=== PATIENT | female | born 1950 | race Caucasian/White ===

== ENCOUNTER 2019-09-10 06:14 | Day surgery (SDC) | payer MEDICARE, SELFPAY ==
[2019-09-09 12:31] VITALS: BMI 31.6
[2019-09-10 06:41] VITALS: BP 169/85; PULSE 69; RESP 18; TEMP 36; O2SAT 99
[2019-09-10] MEDS: sodium chloride 0.9% 1,000 ML 30 ML (06:50)
--- NOTE | 2019-09-10 06:55 | PM.HPUD ---
H&P update H&P Update: DATE OF SURGERY/PROCEDURE: 09/10/19 DATE H&P PERFORMED: 09/10/19 PLANNED PROCEDURE: Operation Date: 09/10/19 07:30 Proposed Procedures p Colonoscopy(Not Applicable) - Isacc Lewis MD Full H&P HPI: PRIMARY INDICATION/DIAGNOSIS FOR SURGICAL PROCEDURE: FIT positive PLANNED PROCEDURE: Screening colonoscopy HPI: This a 69-year-old female who lives in a group home and had a colonoscopy in [place] about 10 to 12 years ago. Patient had a fit test which was positive. She denies any GI symptoms Perinent History: Medical/Surgical History: DJD Hypertension Hyperlipidemia Past surgical history: Back surgery Cholecystectomy Social History: Social History Smoking and tobacco status: never smoked Alcohol intake: never Substance/Drug Use: never Pertinent Exam Findings: PHYSICAL EXAM: alert and oriented x 3 OTHER PERTINENT EXAM FINDINGS: Abdomen is soft A&P Assessment and plan (1) Encounter for screening colonoscopy: Status: Acute Code(s): Z12.11 - Encounter for screening for malignant neoplasm of colon
--- NOTE | 2019-09-10 06:57 | ANES.PREANES ---
Pre-Anesthetic Assessment Pre-Anesthetic Assessment: Height/Weight: Height 1.63 m Weight 83.461 kg Temp Pulse Resp BP Pulse Ox 96.8 F L 69 18 169/85 99 09/10/19 06:41 09/10/19 06:41 09/10/19 06:41 09/10/19 06:41 09/10/19 06:41 Proposed Procedure: Operation Date: 09/10/19 07:30 Proposed Procedures p Colonoscopy(Not Applicable) - Isacc Lewis MD Was Beta Estefany taken within 24 hours: N/A Last intake: Intake Last Liquid Date 09/09/19 Last Liquid Time 20:00 Last Solid Date 09/08/19 Last Solid Time 20:00 Social: Social History: No tobacco Exam: Pre-Anes Outpt Exam: alert and oriented x 3 Airway: MP: 2 History/ROS: No significant history except as noted Pulmonary: Pulmonary: None reported CV/HEM: CV/HEM: HTN and Murmur : : None reported Hepatic: Hepatic: None reported GI: GI: None reported Metabolic: Metabolic: Morbid obesity and Thyroid (hypothyroid) Musc/skel: Musc/skel: OA/DJD Neuropsych: Neuropsych: TIA Anesthetic Plan: ASA status: III Anesthesia: Anesthesia Evaluation and MAC Risk of > 500 ml blood loss (7ml/kg in children): No PFSH Anesthesia PFSH: Social History Smoking and tobacco status: never smoked Alcohol intake: never Substance/Drug Use: never Data Anesthesia Cardiac Studies: No Data to Display
[2019-09-10 07:23] VITALS: BP 93/53; PULSE 69; RESP 16; TEMP 36.2; O2SAT 98
[2019-09-10 07:35] VITALS: BP 93/50; PULSE 73; RESP 18; O2SAT 100
== END 2019-09-10 07:53 | disposition home or self-care (01) ==
PROVIDERS: Family Provider Internal Medicine; Visit Provider Surgery
PROC: 0DJD8ZZ Inspection of Lower Intestinal Tract, Via Natural or Artificial Opening Endoscopic (ICD-10-PCS; CPT 45378; principal; 2019-09-10 07:30)
DX: Z12.11 Encounter for screening for malignant neoplasm of colon (principal); K57.30 Diverticulosis of large intestine without perforation or abscess without bleeding; I10 Essential (primary) hypertension; E66.01 Morbid (severe) obesity due to excess calories; Z68.31 Body mass index [BMI] 31.0-31.9, adult; M19.90 Unspecified osteoarthritis, unspecified site; E03.9 Hypothyroidism, unspecified; E78.5 Hyperlipidemia, unspecified
CPT/HCPCS: 12345; 45378; 96365; J2704; J7030

== ENCOUNTER 2020-11-27 10:35 | Outpatient (CLI) | payer MEDICARE, SELFPAY ==
--- NOTE | 2020-11-27 10:41 | MM_ITS ---
WS: [id number] Bilateral screening digital mammogram, 11/27/2020 Clinical Data: SCREENING Comparison: 05/15/2019, 01/19/2018, 08/31/2016, 10/23/2014, 09/05/2013, 06/12/2012. Findings: The breast parenchymal pattern shows fat replacement. No spiculated masses or clustered calcification s are seen. There are no secondary signs of carcinoma. MM/[id number] Impression: 1. Negative bilateral mammogram unchanged. 2. Recommend annual screening mammograms. BIRADS: 1-Negative FOLLOW UP: 1 Year Follow-up The CAD tool drawing checker was used.
== END 2020-11-27 10:36 | disposition home or self-care (01) ==
LOC: RADSHAW 10:39
PROVIDERS: Family Provider Internal Medicine; PCP Internal Medicine; Visit Provider Internal Medicine
DX: Z12.31 Encounter for screening mammogram for malignant neoplasm of breast (principal)
CPT/HCPCS: 77067

== ENCOUNTER 2021-10-14 13:38 | Outpatient (CLI) | payer MEDICARE, SELFPAY ==
--- NOTE | 2021-10-14 13:49 | XR_ITS ---
WS: [email or web address] SCREENING DEXA SCAN [email or web address] CLINICAL INFORMATION: ASYMPTOMATIC POSTMENOPAUSAL STATUS COMPARISON: None. FINDINGS: The L1-L4 bone mineral density measures 1.274 g/cm2. This corresponds to a T score score of 0.8 and Z score of 1.6. Left femoral neck bone mineral density measures 0.843 g/cm2. This corresponds to a T score of -1.3 an d Z score of -0.4. Right femoral neck bone mineral density measures 0.836 g/cm2. This corresponds to a T score -1.4of an d Z score of -0.4. Mean femoral neck bone mineral density measures 0.840 g/cm2. This corresponds to a T score of -1.3 an d Z score of -0.4. XR/XR DEXA axial skeleton* [id number] IMPRESSION: Osteopenia femoral necks. Normal bone mineralization lumbar spine although like ly spuriously elevated due to endplate sclerosis Patient's FRAX calculated 10 year probability for major osteoporotic fracture i s 23.9% and osteoporotic hip fracture is 10.2%.
== END 2021-10-14 13:39 | disposition home or self-care (01) ==
LOC: RAD 13:39
PROVIDERS: PCP Internal Medicine; Visit Provider Internal Medicine
DX: Z78.0 Asymptomatic menopausal state (principal); M85.88 Other specified disorders of bone density and structure, other site
CPT/HCPCS: 77080

== ENCOUNTER 2021-11-08 13:01 | Outpatient (CLI) | payer MEDICARE, SELFPAY ==
--- NOTE | 2021-11-08 13:08 | MR_ITS ---
WS: [id number] MRI LUMBAR SPINE NONCONTRAST TECHNIQUE: Sagittal T1, T2 and STIR imaging. Axial T1 and T2 imaging. CLINICAL INFORMATION: DEGENERATIVE DISC DZ LSPINE W/RADICULOPATHY COMPARISON: None. FINDINGS: Mild lumbar curve. No acute compression. No high-grade central canal stenosis. Disc space narrowing w orse at L2-L3, L3-L4, and L5-S1. L1-L2: Normal. L2-L3: Mild disc bulging with osteophytic ridging. Narrowing of the subarticular recess bilaterally. Mild facet arthropathy. Mild LEFT foraminal narrowing. L3-L4: Mild disc bulging and osteophytic ridging. Mild central canal stenosis. Impingement on the RIG HT subarticular recess and traversing RIGHT L4 nerve root. Mild RIGHT foraminal narrowing. Moderate f acet arthropathy. L4-L5: Mild disc bulging with osteophytic ridging. Moderate facet arthropathy with ligamentum flavum flavum hypertrophy. Moderate central canal stenosis. Impingement traversing L5 nerve roots bilaterall y RIGHT greater than LEFT. Mild RIGHT foraminal narrowing. Moderate facet arthropathy. L5-S1: Mild disc bulging with osteophytic ridging. Mild LEFT and no significant RIGHT foraminal narro wing. Mild facet arthropathy. Visualized pelvic bony structures: Normal. Paravertebral soft tissues: Normal. MR/MR lumbar spine wo con* [id number] IMPRESSION: 1. Mild lumbar curve. No acute compression. No high-grade central canal stenos is. 2. Mild central canal stenosis L3-L4 with impingement RIGHT subarticular reces s and traversing RIGHT L4 nerve root. Mild RIGHT L3-L4 foraminal narrowing. 3. Moderate central canal stenosis L4-L5 with impingement traversing L5 nerve roots bilaterally. Mild RIGHT L4-L5 foraminal narrowing. 4. Osteophytic ridging L5-S1 with mild LEFT L5-S1 foraminal narrowing. 5. Mild to moderate facet arthropathy L3-L5.
== END 2021-11-08 13:02 | disposition home or self-care (01) ==
LOC: RAD 13:02
PROVIDERS: PCP Internal Medicine; Visit Provider Internal Medicine
DX: M51.17 Intervertebral disc disorders with radiculopathy, lumbosacral region (principal); M48.061 Spinal stenosis, lumbar region without neurogenic claudication; M25.78 Osteophyte, vertebrae; M47.816 Spondylosis without myelopathy or radiculopathy, lumbar region
CPT/HCPCS: 72148

== ENCOUNTER 2021-12-24 13:48 | Outpatient (CLI) | payer MEDICARE, SELFPAY ==
--- NOTE | 2021-12-24 13:53 | MM_ITS ---
WS: [id number] BILATERAL 3D TOMOSYNTHESIS DIGITAL SCREENING MAMMOGRAPHY WITH CAD CLINICAL INFORMATION: SCREENING HISTORY: Screening mammogram. No current complaints. COMPARISON: November 27, 2020 TECHNIQUE: Bilateral CC and MLO views. FINDINGS: Scattered fibroglandular densities bilaterally. A few incidental punctate and lucent centered calcifi cations. No suspicious focal mass, asymmetry, calcifications, or architectural distortion. No evidenc e of malignancy. MM/[place] [id number] IMPRESSION: BI-RADS: 2-Benign FOLLOW UP: 1 Year Follow-up Recommend return to annual screening mammography.
== END 2021-12-24 13:49 | disposition home or self-care (01) ==
PROVIDERS: PCP Internal Medicine; Visit Provider Internal Medicine
DX: Z12.31 Encounter for screening mammogram for malignant neoplasm of breast (principal)
CPT/HCPCS: 77063; 77067

== ENCOUNTER 2022-01-04 12:12 | Outpatient (CLI) | payer MEDICARE, SELFPAY ==
--- NOTE | 2022-01-04 12:29 | USCV_ITS ---
Elif Segura Age: 71 Gender: F : 1950 Exam Date: 01/04/2022 12:51 Ordering Phys: Sandi Mota MD Technologist: GRANT Exam Location[place] [facility] [place]ication: Murmur BP: 126 / 73 HR: 72 Rhythm: Sinus Technical Quality: Adequate MEASUREMENTS (Male / Female) Normal Values 2D ECHO LV Diastolic Diameter PLAX 3.3 cm 4.2 - 5.9 / 3.9 - 5.3 cm LV Systolic Diameter PLAX 2.2 cm IVS Diastolic Thickness 1.0 cm 0.6 - 1.0 / 0.6 - 0.9 cm IVS Systolic Thickness 1.4 cm LVPW Diastolic Thickness 1.0 cm 0.6 - 1.0 / 0.6 - 0.9 cm LVPW Systolic Thickness 1.3 cm RV Chamber Size 2.8 cm LVOT Diameter 2.0 cm LV Ejection Fraction 2D Teich 65.9 % LV Ejection Fraction MOD 2C 64.4 % LV Ejection Fraction 2C AL 63.4 % LA Diameter 2.3 cm LA Width 3.2 cm LA Height 4.6 cm RA Width 2.9 cm RA Height 5.0 cm Aorta at Sinotubular Diameter 2.2 cm IVC Diameter 1.3 cm M-MODE Aortic Annulus Diameter 3.0 cm LA Ao Ratio MM 0.8 MV E Point Septal Separation 0.7 cm DOPPLER AV Peak Velocity 136.0 cm/s LVOT Peak Velocity 86.0 cm/s AV Area Cont Eq vti 2.5 cm squared AV Area Cont Eq pk 2.0 cm squared MV Area PHT 4.4 cm squared Mitral E to A Ratio 1.1 MV E' Velocity 47.5 cm/s Mitral E to MV E' Ratio 10.5 Mitral E to LV E' Lateral Ratio 9.9 Mitral E to LV E' Septal Ratio 11.3 TR Peak Velocity 231.1 cm/s TR Peak Gradient 21.4 mmHg TR Mean Velocity 190.9 cm/s TR Mean Gradient 15.2 mmHg TR Velocity Time Integral 65.2 cm TV Peak E Velocity 48.0 cm/s Right Atrial Pressure 3.0 mmHg Pulmonary Artery Systolic Pressu 24.4 mmHg PV Peak Velocity 74.0 cm/s RV Acceleration Time 0.1 s RV Ejection Time 0.3 s RV AcT/ET 0.3 FINDINGS Left Ventricle Normal left ventricular size, systolic function and wall thickness, with no regional wall motion abnormalities. Left ventricular ejection fraction is estimated at 65 %. Grade II diastolic dysfunction, moderately elevated filling pressures. Right Ventricle Normal right ventricular size and systolic function. Right ventricular systolic pressure 24.4 mmHg. Right Atrium Normal right atrial size. Left Atrium Mildly increased left atrial size. Mitral Valve Moderate mitral annular calcification. Mildly thickened mitral valve. No mitral valve stenosis. Trace mitral valve regurgitation. Aortic Valve Mildly thickened and calcified trileaflet sclerotic aortic valve. No aortic valve stenosis. No aortic valve regurgitation. Tricuspid Valve Structurally normal tricuspid valve. No tricuspid valve stenosis. Trace tricuspid valve regurgitation. Pulmonic Valve Pulmonic valve not well visualized. Pericardium No pericardial effusion. Aorta Normal size aortic root and proximal ascending aorta. IVC Normal IVC dimension with >50% respiratory change of the inferior vena cava. CONCLUSIONS 1. Normal left ventricular size, systolic function and wall thickness, with no regional wall motion abnormalities. Left ventricular ejection fraction is estimated at 65 %. Grade II diastolic dysfunction, moderately elevated filling pressures. 2. Mildly increased left atrial size. 3. Pulmonary artery pressure estimated at 24 mm Hg. 4. Mildly thickened and calcified trileaflet sclerotic aortic valve. 5. When compared to previous study dated 03/20/2019, there may not have been any significant change. Aurora Burrows MD (Electronically Signed) Final Date: 11 Jan 2022 12:33 S
== END 2022-01-04 12:13 | disposition home or self-care (01) ==
PROVIDERS: PCP Internal Medicine; Visit Provider Internal Medicine
DX: R01.1 Cardiac murmur, unspecified (principal)
CPT/HCPCS: 93306

== ENCOUNTER 2023-02-15 09:18 | Outpatient (CLI) | payer MEDICARE, SELFPAY ==
--- NOTE | 2023-02-15 09:29 | MM_ITS ---
WS: [id number] BILATERAL SCREENING DIGITAL TOMOSYNTHESIS MAMMOGRAM WITH CAD HISTORY: SCREENING COMPARISON: 12/24/2021 on 11/27/2020 Bilateral CC and MLO views with tomosynthesis and synthetic mammography submitted. Computer aided det ection analyzed. Breast composition: There are scattered areas of fibroglandular density. No suspicious masses, microc alcifications or architectural distortion. Benign calcifications in each breast. MM/[id number] IMPRESSION: BI-RADS: 2-Benign FOLLOW UP: 1 Year Follow-up
== END 2023-02-15 09:19 | disposition home or self-care (01) ==
PROVIDERS: PCP Internal Medicine; Visit Provider Internal Medicine
DX: Z12.31 Encounter for screening mammogram for malignant neoplasm of breast (principal)
CPT/HCPCS: 77063; 77067

== ENCOUNTER 2023-10-19 11:31 | Outpatient (CLI) | payer MEDICARE, SELFPAY ==
--- NOTE | 2023-10-19 11:42 | USCV_ITS ---
Elif Segura Age: 73 Gender: F : 1950 Exam Date: 10/19/2023 12:14 Ordering Phys: Sandi Mota MD Technologist: MELODY Exam Location: [facility] [place] Indication: MURMUR BP: 123 / 80 HR: 68 Rhythm: Sinus Technical Quality: Adequate MEASUREMENTS (Male / Female) Normal Values 2D ECHO LV Diastolic Diameter PLAX 5.0 cm 4.2 - 5.9 / 3.9 - 5.3 cm IVS Diastolic Thickness 0.9 cm 0.6 - 1.0 / 0.6 - 0.9 cm IVS Systolic Thickness 1.7 cm LVPW Diastolic Thickness 1.7 cm 0.6 - 1.0 / 0.6 - 0.9 cm LVPW Systolic Thickness 2.7 cm LVOT Diameter 2.0 cm LV Ejection Fraction 2D Teich 73.4 % LV Ejection Fraction MOD 2C 65.7 % LV Ejection Fraction 2C AL 68.9 % LA Diameter 3.1 cm RA Systolic Volume 4C AL 25.1 ml RA Systolic Volume 4C MOD 24.1 ml Aorta at Sinotubular Diameter 2.6 cm M-MODE LA Ao Ratio MM 1.3 AV Cusp Separation MM 1.2 cm DOPPLER AV Peak Velocity 182.5 cm/s LVOT Peak Velocity 107.0 cm/s AV Area Cont Eq vti 1.7 cm squared AV Area Cont Eq pk 1.8 cm squared MV Peak Velocity 126.0 cm/s MV Area PHT 2.7 cm squared Mitral E to A Ratio 0.7 TR Peak Velocity 213.0 cm/s TR Peak Gradient 18.1 mmHg TR Mean Velocity 197.0 cm/s TR Mean Gradient 16.0 mmHg TR Velocity Time Integral 81.4 cm Right Atrial Pressure 3.0 mmHg Pulmonary Artery Systolic Pressu 21.1 mmHg PV Peak Velocity 99.0 cm/s RV Ejection Time 0.3 s FINDINGS Left Ventricle Normal left ventricular size and systolic function, EF 65.7%.mild left ventricular hypertrophy. No regional wall motion abnormalities. Grade I/IV diastolic dysfunction (abnormal relaxation filling pattern), normal to mildly elevated filling pressures. Right Ventricle The right ventricle is normal in size and function. Right Atrium The right atrium is normal in size. Left Atrium Mildly increased left atrial size. Mitral Valve Mild mitral annular calcification. Aortic Valve Thickened aortic valve. Tricuspid Valve Trace tricuspid valve regurgitation. Estimated pulmonary artery peak systolic pressure of 21 mmHg Pulmonic Valve Trace pulmonary valve regurgitation. Pericardium Normal pericardium without effusion. Aorta Normal ascending aorta dimension. IVC The inferior vena cava appears normal. CONCLUSIONS Normal left ventricular size and systolic function, EF 65.7%.mild left ventricular hypertrophy. No regional wall motion abnormalities. Grade I/IV diastolic dysfunction (abnormal relaxation filling pattern), normal to mildly elevated filling pressures. Mild mitral annular calcification. Thickened aortic valve. Mildly increased left atrial size. Trace tricuspid valve regurgitation. Estimated pulmonary artery peak systolic pressure of 21 mmHg. Trace pulmonary valve regurgitation. There is no pericardial effusion. There are no intracardiac masses. Compared to the study from 12/15/2021, there may not be significant change. Dr Jazzy Aponte MD FAC (Electronically Signed) Final Date: 19 October 2023 20:17 S
== END 2023-10-19 11:32 | disposition home or self-care (01) ==
LOC: RAD 11:32
PROVIDERS: PCP Internal Medicine; Visit Provider Internal Medicine
DX: I08.0 Rheumatic disorders of both mitral and aortic valves (principal)
CPT/HCPCS: 93306

== ENCOUNTER 2023-11-16 14:44 | Outpatient (CLI) | payer MEDICARE, SELFPAY ==
--- NOTE | 2023-11-16 14:47 | XR_ITS ---
WS: [id number] SCREENING DEXA SCAN [employer] CLINICAL INFORMATION: Asymptomatic postmenopausal COMPARISON: 10/14/2021 FINDINGS: The L1-L4 bone mineral density measures 1.322 g/cm2. This corresponds to a T score score of 1.2 and Z score of 2.1. Left femoral neck bone mineral density measures 0.854 g/cm2. This corresponds to a T score of -1.2 an d Z score of -0.1. Right femoral neck bone mineral density measures 0.851 g/cm2. This corresponds to a T score -1.2of an d Z score of -0.1. Mean femoral neck bone mineral density measures 0.853 g/cm2. This corresponds to a T score of -1.2 an d Z score of -0.1. IMPRESSION: Normal bone mineralization lumbar spine. Osteopenia femoral necks. Patient's FRAX calculated 10 year probability for major osteoporotic fracture is 13.5% and osteoporot ic hip fracture is 3.5%. Bone mineral density in the lumbar spine increased 3.8% Bone mineral density femoral necks increased 1.5%
== END 2023-11-16 14:45 | disposition home or self-care (01) ==
LOC: RAD 14:45
PROVIDERS: PCP Internal Medicine; Visit Provider Internal Medicine
DX: Z78.0 Asymptomatic menopausal state (principal); M85.88 Other specified disorders of bone density and structure, other site
CPT/HCPCS: 77080

== ENCOUNTER 2024-04-24 10:39 | Outpatient (CLI) | payer MEDICARE, SELFPAY ==
--- NOTE | 2024-04-24 10:40 | MM_ITS ---
WS: [id number] BILATERAL 3D TOMOSYNTHESIS DIGITAL SCREENING MAMMOGRAPHY WITH CAD CLINICAL INFORMATION: SCREENING HISTORY: Screening mammogram. No current complaints. COMPARISON: 2022 TECHNIQUE: Bilateral CC and MLO views. FINDINGS: Scattered fibroglandular densities bilaterally. A few incidental punctate and lucent centered calcif ications. New partially calcified lesion at the 12 o'clock position mid to anterior RIGHT breast. Rec ommend further evaluation with RIGHT breast diagnostic mammography and ultrasound. LEFT breast is unremarkable. MM/[id number] IMPRESSION: DENSITY: There are scattered areas of fibroglandular density. BI-RADS: 0 - Incomplete: Need additional imaging evaluation. FOLLOW UP: Need Additional Imaging Recommend further evaluation with RIGHT breast diagnostic mammography and ultra sound.
== END 2024-04-24 10:40 | disposition home or self-care (01) ==
LOC: RAD 10:40
PROVIDERS: PCP Internal Medicine; Visit Provider Internal Medicine
DX: Z12.31 Encounter for screening mammogram for malignant neoplasm of breast (principal)
CPT/HCPCS: 77063; 77067

== ENCOUNTER 2024-05-30 10:12 | Outpatient (CLI) | payer MEDICARE, SELFPAY ==
--- NOTE | 2024-05-30 10:16 | MM_ITS ---
WS: [id number] RIGHT 3D TOMOSYNTHESIS DIGITAL MAMMOGRAPHY WITH CAD CLINICAL INFORMATION: MAMMOGRAM, ABNORMAL, RIGHT HISTORY: Additional views COMPARISON: 02/15/2023 TECHNIQUE: 3 views of the right breast were obtained. FINDINGS: Scattered fibroglandular densities of the right breast. Partially calcified ovoid lesion anterior RIG HT breast near the 12 o'clock position. This may present a calcified oil cyst but new from 2022. Ultr asound is pending. ULTRASOUND BREAST RIGHT TECHNIQUE: Ultrasound right breast focused area of concern. CLINICAL INFORMATION: MAMMOGRAM, ABNORMAL, RIGHT FINDINGS: Ultrasound composition RIGHT breast anteriorly. Ultrasound RIGHT breast 5 cm from the nipple 12 o'gloria ck position demonstrates a partially calcified cyst measuring 5 x 4 x 4 mm. Findings have a benign ap pearance. Recommend return to annual screen mammography. MM/MM diag RT tomosynthesis [id number] IMPRESSION: DENSITY: There are scattered areas of fibroglandular density. BI-RADS: 2 - Benign. FOLLOW UP: 1 Year Follow-up Recommend return to annual screening mammography.
== END 2024-05-30 10:13 | disposition home or self-care (01) ==
LOC: RAD 10:13
PROVIDERS: PCP Internal Medicine; Visit Provider Internal Medicine
DX: R92.8 Other abnormal and inconclusive findings on diagnostic imaging of breast (principal); R92.323 Mammographic fibroglandular density, bilateral breasts
CPT/HCPCS: 76642; 77061; G0279

== ENCOUNTER 2025-04-10 09:24 | Outpatient (CLI) | payer MEDICARE, SELFPAY ==
--- NOTE | 2025-04-10 09:30 | USCV_ITS ---
Elif Segura Age: 75 Gender: F : 1950 Exam Date: 04/10/2025 09:57 Ordering Phys: Sandi Mota MD Technologist: RACHEL Exam Location: [facility] – [place] Indication: Valerieur BP: 130 / 75 HR: 70 Rhythm: Sinus Technical Quality: Adequate MEASUREMENTS (Male / Female) Normal Values 2D ECHO LV Diastolic Diameter PLAX 3.9 cm 4.2 - 5.9 / 3.9 - 5.3 cm IVS Diastolic Thickness 1.6 cm 0.6 - 1.0 / 0.6 - 0.9 cm IVS Systolic Thickness 1.8 cm LVPW Diastolic Thickness 1.5 cm 0.6 - 1.0 / 0.6 - 0.9 cm LVPW Systolic Thickness 1.6 cm LVOT Diameter 2.1 cm LV Ejection Fraction 2D Teich 73.5 % LV Ejection Fraction MOD 4C 65.4 % LV Ejection Fraction MOD 2C 62.9 % LV Ejection Fraction 2C AL 64.3 % LA Diameter 3.7 cm LA Sys Volume AL 48.5 cm cubed LA Sys Volume Index AL 26.2 cm cubed/m squared Aorta at Sinotubular Diameter 3.7 cm M-MODE LA Ao Ratio MM 1.3 AV Cusp Separation MM 1.7 cm DOPPLER AV Peak Velocity 195.8 cm/s LVOT Peak Velocity 83.0 cm/s AV Area Cont Eq vti 1.6 cm squared AV Area Cont Eq pk 1.4 cm squared MV Area PHT 2.5 cm squared Mitral E to A Ratio 0.9 TV Peak Velocity 215.5 cm/s TR Peak Velocity 245.0 cm/s TR Peak Gradient 24.0 mmHg TV Peak E Velocity 93.0 cm/s PV Peak Velocity 104.0 cm/s FINDINGS Left Ventricle Normal left ventricular size and systolic function with no regional wall motion abnormalities. EF is 60-65%. Grade 1 diastolic dysfunction Right Ventricle Normal in size and function Right Atrium Normal right atrial size. Left Atrium Normal left atrial size. Mitral Valve Moderate mitral annular calcification. Mild mitral valve regurgitation. Aortic Valve Thickened aortic valve. Mild aortic valve stenosis, mean gradient 7.26 mmHg, COLLEEN 1.5cm squared. Tricuspid Valve Insufficient TR jet to calculate RVSP Pulmonic Valve Mild pulmonic regurgitation Pericardium Normal Aorta Mildly dilated IVC Not well visualized CONCLUSIONS LV systolic function is normal with EF of 60-65% Mild mitral valve regurgitation. Mild aortic valve stenosis Mild pulmonic regurgitation Aorta is mildly dilated with ascending aortic diameter of 3.67cm Sonu Luciano MD (Electronically Signed) Final Date: 12 April 2025 00:31 S
== END 2025-04-10 09:25 | disposition home or self-care (01) ==
LOC: RAD 09:25
PROVIDERS: PCP Internal Medicine; Visit Provider Internal Medicine
DX: R01.1 Cardiac murmur, unspecified (principal); I35.0 Nonrheumatic aortic (valve) stenosis; I37.1 Nonrheumatic pulmonary valve insufficiency; I34.0 Nonrheumatic mitral (valve) insufficiency
CPT/HCPCS: 93306

== ENCOUNTER 2025-06-02 10:24 | Outpatient (CLI) | payer MEDICARE, SELFPAY ==
--- NOTE | 2025-06-02 | MM_ITS ---
WS: [id number] BILATERAL SCREENING DIGITAL TOMOSYNTHESIS MAMMOGRAM WITH CAD HISTORY: ANNUAL SCREENING COMPARISON: 05/30/2024, 04/24/2024, 02/15/2023 and 12/24/2021 Bilateral CC and MLO views with tomosynthesis and synthetic mammography submitted. Computer aided detection analyzed. Breast composition: There are scattered areas of fibroglandular density. No suspicious masses, microcalcifications or architectural distortion. Benign calcifications in each breast. MM/MM scr BI tomosynthesis [id number] IMPRESSION: BI-RADS: 2 - Benign. FOLLOW UP: 1 Year Follow-up
== END 2025-06-02 10:25 | disposition home or self-care (01) ==
LOC: RAD 10:25
PROVIDERS: PCP Internal Medicine; Visit Provider Internal Medicine
DX: Z12.31 Encounter for screening mammogram for malignant neoplasm of breast (principal); R92.323 Mammographic fibroglandular density, bilateral breasts; R92.1 Mammographic calcification found on diagnostic imaging of breast
CPT/HCPCS: 77063; 77067

== ENCOUNTER 2025-06-25 11:28 | Outpatient (CLI) | payer MEDICARE, SELFPAY ==
--- NOTE | 2025-06-25 11:36 | XR_ITS ---
WS: [id number] Exam: XR shoulder RT min 2V* [id number] Date/Time of Exam: 06/25/2025 11:45 AM Reason For Exam: PAIN IN R SHOULDER DLP: No fracture. Mild DJD at the glenohumeral joint and AC joint. Normal soft tissues. XR/XR shoulder RT min 2V* [id number] IMPRESSION: 1. Mild DJD.
== END 2025-06-25 11:29 | disposition home or self-care (01) ==
PROVIDERS: PCP Internal Medicine; Visit Provider Internal Medicine
DX: M25.511 Pain in right shoulder (principal); M19.011 Primary osteoarthritis, right shoulder
CPT/HCPCS: 73030

== ENCOUNTER → 2025-07-08 09:17 | Outpatient (BNVA) | payer MEDICARE, SELFPAY | PROVIDERS: PCP Internal Medicine; Visit Provider Orthopaedic Surgery | DX: M75.101 Unspecified rotator cuff tear or rupture of right shoulder, not specified as traumatic (principal) | CPT/HCPCS: 20610; 99204; J3301; J3490; J9999 ==